=== PATIENT | male | born 1980 | race Caucasian/White ===

== ENCOUNTER 2022-06-02 05:45 | Emergency (ER) | payer OTHER, SELFPAY ==
[2022-06-02 05:50] VITALS: BP 151/102; PULSE 82; RESP 18; TEMP 36.4; O2SAT 93
[2022-06-02 06:00] VITALS: BP 151/100; PULSE 93; RESP 16; O2SAT 94
--- NOTE | 2022-06-02 06:05 | CTR_ITS ---
PROCEDURE INFORMATION: Exam: CT Abdomen And Pelvis With Contrast Exam date and time: 06/02/2022 6:16 AM Age: 42 years old Clinical indication: Abdominal pain; Flank; Right; Patient HX: Previous history of renal stone; Additional info: And pain TECHNIQUE: Imaging protocol: Computed tomography of the abdomen and pelvis with contrast. Radiation optimization: All CT scans at this facility use at least one of these dose optimization techniques: automated exposure control; mA and/or kV adjustment per patient size (includes targeted exams where dose is matched to clinical indication); or iterative reconstruction. Contrast material: OMNI 350; Contrast volume: 100 ml; Contrast route: INTRAVENOUS (IV); REPORTING DATA: Count of CT and Cardiac NM exams in prior 12 months: This patient has received 0 known CTs and 0 known cardiac nuclear medicine studies in the 12 months prior to the current study. COMPARISON: No relevant prior studies available. RADIATION DOSE METRICS: Total DLP (mGy-cm): 780.03 FINDINGS: Lungs: The lung bases are clear. Liver: There is a very small 5-6 mm low attenuation area in the right lobe of the liver. The appearance is nonspecific, but statistically this most likely represents a small cyst or cavernous hemangioma. Gallbladder and bile ducts: No definite gallbladder abnormality by CT. No biliary tree dilation. Pancreas: Unremarkable. Spleen: Unremarkable. Adrenal glands: Unremarkable. Kidneys and ureters: Two small right lower pole intrarenal calculi. Mild right hydronephrosis. There is a 3 x 5 mm proximal right ureteral calculus, about 4 cm inferior to the UPJ. The calculus lies at the upper aspect of L4. Possible subcentimeter cysts in both kidneys, too small to accurately characterize by CT. No left hydronephrosis or visible left ureteral calculus. Stomach and bowel: The stomach appears somewhat distended at the time of scanning. Please correlate clinically. No significant bowel distention. There are no CT findings to strongly suggest diverticulitis. Appendix: The appendix is visualized and appears normal. Intraperitoneal space: No free intraperitoneal air, or ascites. Vasculature: No evidence for abdominal aortic aneurysm. Lymph nodes: No retroperitoneal adenopathy. Urinary bladder: No visible calculus in the urinary bladder. Reproductive: Essentially unremarkable for age. Bones/joints: Mild to moderate bulging disc suspected at L4-L5. Soft tissues: No significant acute finding. CT/CT abdomen pelvis w con* [id number] IMPRESSION: 1. 3 x 5 mm proximal right ureteral calculus, see additional details above. 2. Mild right hydronephrosis. 3. Normal appendix. 4. Somewhat distended stomach. 5. No free air or significant bowel distention. 6. Other findings discussed above. COMMENTS: Consistent with the [employer]'s Incidental Findings Committee white paper (J Am Melo Radiol 2018): Any incidental renal lesion less than 1 cm or classified as too small to characterize, or any incidental cystic renal lesion characterized as simple-appearing, is likely benign. No follow-up imaging is recommended for these lesions per consensus recommendations based on imaging criteria.
[2022-06-02 06:11] LABS: Basophils % 0.5 %; Eosinophils # 0.1 10^3/uL (0.0-0.8); Eosinophils % 0.9 %; Hemoglobin 17.4 g/dL (11.7-16.6); Lymphocytes # 2.2 10^3/uL (0.8-4.8); Lymphocytes % 28.8 %; Mean Corpuscular HGB Conc 32.8 g/dL (30.0-36.0); Mean Corpuscular Hemoglobin 28.3 pg (28.0-34.0); Mean Corpuscular Volume 86.2 fl (80-94); Mean Platelet Volume 10.8 fL (7.4-10.4); Monocytes # 0.7 10^3/uL (0.2-0.9); Monocytes % 9.2 %; Neutrophils # 4.66 10^3/uL (1.8-7.7); Neutrophils % 60.3 %; Nucleated Red Blood Cells % 0 %; Platelet Count 234 10^3/cmm (130-400); Red Blood Count 6.15 10^6/uL (4.1-5.3); Red Cell Distribution Width 12.1 % (12.1-15.1); White Blood Count 7.7 10^3/uL (4.0-10.0)
[2022-06-02 06:26] LABS: Alanine Aminotransferase 26 U/L (0-41); Albumin Level 4.5 g/dL (3.5-5.2); Alkaline Phosphatase 59 U/L (40-130); Anion Gap 16.4 (5-19); Aspartate Amino Transferase 21 U/L (0-40); Blood Urea Nitrogen 20 mg/dL (6-20); Calcium 9.1 mg/dL (8.5-10.5); Carbon Dioxide 27 mmol/L (22-29); Chloride 102 mmol/L (98-107); Globulin 2.6 g/dL (1.3-4.6); Glomerular Filtration Rate 61.1 mL/min (90-130); Glucose 114 mg/dL (65-115); Lipase 22 U/L (13-60); Osmolality Calculated 295 mOsm/kg (285-295); Potassium 4.4 mmol/L (3.5-5.1); Sodium 141 mmol/L (136-145); Total Bilirubin 0.4 mg/dL (0.15-1.2); Total Protein 7.1 g/dL (6.6-8.7)
--- NOTE | 2022-06-02 06:28 | ED_ITS ---
HPI - Abdominal Pain General: Chief Complaint: Abdominal Pain Stated Complaint: R abdomen pain, R flank pain Time Seen by Provider: 06/02/22 06:04 Source: patient Mode of arrival: ambulatory Limitations: no limitations History of Present Illness: 42-year-old male states that he started having some abdominal pain mainly in his right lower quadrant and right flank at midnight he has had some nausea vomiting states pain is sharp in nature he denies any fevers rates his pain a 7 out of 10 currently denies any worsening improving factors. Associated Symptoms: Reports nausea and vomiting; Denies chills, dysuria and fever(s) Review of Systems Const: Denies: fever(s), chills, body aches or change in appetite Eyes: Denies: blurry vision or eye discomfort ENMT: Denies: throat pain or dental pain Card: Denies: chest pain Resp: Denies: dyspnea GI: Reports: abdominal pain, nausea and vomiting : Denies: dysuria Musc: Denies: neck pain or back pain Skin/Breast: Denies: rash Neuro: Denies: headache(s) Psych: Denies: depression Rohan/Lymph: Denies: easy bruising All/Imm: Denies: urticaria PFSH ED PFSH: Medical History (Updated 06/02/22 @ 07:12 by Chace Banuelos MD) No pertinent past medical history Social History (Updated 06/02/22 @ 06:29 by Chace Banuelos MD) Substance/Drug Use: never Physical Exam Const: COMMON NORMALS: no acute distress, patient oriented x3 and healthy appearing HENMT: COMMON NORMALS: normocephalic and atraumatic HEAD & SCALP: normocephalic and atraumatic Eye: COMMON NORMALS: Equal, round and reactive pupils present and EOMs intact bilaterally PUPIL: Yes Equal, round and reactive pupils present Neck/C-Spine: COMMON NORMALS: full ROM and supple Chest: COMMONS NORMALS: normal inspection of the chest and normal palpation of entire chest wall Resp: COMMON NORMALS: normal respiratory effort, No retractions, No use of accessory muscles and clear to auscultation bilaterally AUSCULTATION: clear to auscultation bilaterally Cardio: COMMON NORMALS: regular rate, regular rhythm and No murmurs present (Cardio) RATE: regular rate RHYTHM: regular rhythm GI: COMMON NORMALS: Normal to inspection, nondistended, normoactive bowel sounds present, Soft to palpation, non-tender and no masses PALPATION: Yes Soft to palpation Extremity: COMMON NORMALS: normal to inspection and full ROM Neuro: COMMON NORMALS: patient oriented x3, moves all extremities and no focal motor deficits Psych: COMMON NORMALS: mental status grossly normal, Normal thought process present and cooperative THOUGHT PROCESS: Normal thought process present Skin: COMMON NORMALS: no rashes or lesions noted and no wounds GENERAL SKIN EXAM: no rashes or lesions noted Course Vital Signs: Vital signs: Vital Signs Temperature 97.6 F 06/02/22 05:50 Pulse Rate 93 06/02/22 06:00 Respiratory Rate 16 06/02/22 06:30 Blood Pressure 151/100 06/02/22 06:00 Pulse Oximetry 95 06/02/22 06:30 Oxygen Delivery Me thod 06/02/22 06:00 MDM - Abdominal Pain Medical Decision Making Patient presents here with flank pain he does have a kidney stone his pains improved here he stable for discharge he is to follow-up with urologist in [place] where he lives he is return if worsening. Lab Data 06/02/22 05:53 06/02/22 05:53 Labs/Radiology: Radiology Impressions Abdomen/Pelvis CT 06/02/22 06:05 IMPRESSION: 1. 3 x 5 mm proximal right ureteral calculus, see additional details above. 2. Mild right hydronephrosis. 3. Normal appendix. 4. Somewhat distended stomach. 5. No free air or significant bowel distention. 6. Other findings discussed above. COMMENTS: Consistent with the [employer]'s Incidental Findings Committee white paper (J Am Melo Radiol 2018): Any incidental renal lesion less than 1 cm or classified as too small to characterize, or any incidental cystic renal lesion characterized as simple-appearing, is likely benign. No follow-up imaging is recommended for these lesions per consensus recommendations based on imaging criteria. Laboratory Results WBC 7.7 10^3/uL (4.0-10.0) 06/02/22 05:53 RBC 6.15 10^6/uL (4.1-5.3) H 06/02/22 05:53 Hgb 17.4 g/dL (11.7-16.6) H 06/02/22 05:53 Hct 53.0 % (42.0-52.0) H 06/02/22 05:53 MCV 86.2 fl (80-94) 06/02/22 05:53 MCH 28.3 pg (28.0-34.0) 06/02/22 05:53 MCHC 32.8 g/dL (30.0-36.0) 06/02/22 05:53 RDW 12.1 % (12.1-15.1) 06/02/22 05:53 Plt Count 234 10^3/cmm (130-400) 06/02/22 05:53 MPV 10.8 fL (7.4-10.4) H 06/02/22 05:53 Neut % (Auto) 60.3 % 06/02/22 05:53 Lymph % (Auto) 28.8 % 06/02/22 05:53 [place] % (Auto) 9.2 % 06/02/22 05:53 Eos % (Auto) 0.9 % 06/02/22 05:53 Baso % (Auto) 0.5 % 06/02/22 05:53 Neut # (Auto) 4.66 10^3/uL (1.8-7.7) 06/02/22 05:53 Lymph # (Auto) 2.2 10^3/uL (0.8-4.8) 06/02/22 05:53 [place] # (Auto) 0.7 10^3/uL (0.2-0.9) 06/02/22 05:53 Eos # (Auto) 0.1 10^3/uL (0.0-0.8) 06/02/22 05:53 Baso # (Auto) 0.0 10^3/uL (0.0-0.1) 06/02/22 05:53 Nucleated RBC % (auto) 0 % 06/02/22 05:53 Nucleated RBCs # 0.0 /100WBC 06/02/22 05:53 Sodium 141 mmol/L (136-145) 06/02/22 05:53 Potassium 4.4 mmol/L (3.5-5.1) 06/02/22 05:53 Chloride 102 mmol/L (98-107) 06/02/22 05:53 Carbon Dioxide 27 mmol/L (22-29) 06/02/22 05:53 Anion Gap 16.4 (5-19) 06/02/22 05:53 BUN 20 mg/dL (6-20) 06/02/22 05:53 Creatinine 1.3 mg/dL (0.7-1.2) H 06/02/22 05:53 GFR Calculation 61.1 mL/min (90-130) L 06/02/22 05:53 Glucose 114 mg/dL (65-115) 06/02/22 05:53 Calculated Osmolality 295 mOsm/kg (285-295) 06/02/22 05:53 Calcium 9.1 mg/dL (8.5-10.5) 06/02/22 05:53 Total Bilirubin 0.4 mg/dL (0.15-1.2) 06/02/22 05:53 AST 21 U/L (0-40) 06/02/22 05:53 ALT 26 U/L (0-41) 06/02/22 05:53 Alkaline Phosphatase 59 U/L (40-130) 06/02/22 05:53 C-Reactive Protein 3.0 mg/L (0.0-4.9) 06/02/22 05:53 Total Protein 7.1 g/dL (6.6-8.7) 06/02/22 05:53 Albumin 4.5 g/dL (3.5-5.2) 06/02/22 05:53 Globulin 2.6 g/dL (1.3-4.6) 06/02/22 05:53 Lipase 22 U/L (13-60) 06/02/22 05:53 Urine Color Yellow (Yellow) 06/02/22 06:45 Urine Appearance Hazy (CLEAR) A 06/02/22 06:45 Urine pH 7 (5-7) 06/02/22 06:45 Ur Specific [place] 1.005 (1.005-1.030) 06/02/22 06:45 Urine Protein Trace (Negative) 06/02/22 06:45 Urine Glucose (UA) Norm (Normal) 06/02/22 06:45 Urine Ketones Negative (Negative) 06/02/22 06:45 Urine Blood 3+ (Negative) H 06/02/22 06:45 Urine Nitrate Negative (Negative) 06/02/22 06:45 Urine Bilirubin Neg (Negative) 06/02/22 06:45 Urine Urobilinogen Norm mg/dL (Negative) 06/02/22 06:45 Ur Leukocyte Esterase Negative (Negative) 06/02/22 06:45 Urine RBC >100 /hpf (0-2) H 06/02/22 06:45 Urine WBC 0-4 /hpf (0-5) H 06/02/22 06:45 Ur Squamous Epith Cells 0-4 /hpf (0-5) H 06/02/22 06:45 Amorphous Sediment Not Reportable 06/02/22 06:45 Urine Bacteria 1+ /hpf (NONE) H 06/02/22 06:45 Discharge Plan Discharge Patient Disposition: Home Clinical Impression: Kidney stone Prescriptions: New hydrocodone-acetaminophen 5-325 mg tablet 1 tab PO Q6H PRN (Reason: pain) Qty: 14 0RF ondansetron 4 mg tablet,disintegrating 4 mg PO Q6H PRN (Reason: nausea and vomiting) Qty: 14 0RF Discharge Orders: Discharge ED (Routine); Ordered 06/02/22 Ordered By: Chace Banuelos Discharge Diet: Advance as tolerated Discharge Activity: Resume usual activity Patient Instructions: Kidney Stones (ED), Opioid Safety Coding Level of Care Code ED Broadcast Operations Technician for Marilou Ruiz
[2022-06-02 06:30] VITALS: RESP 16; O2SAT 95
[2022-06-02] MEDS: morphine 4 mg/mL SDV 1 mL IVP (06:30)
[2022-06-02] MEDS: ondansetron 2 mg/ML SDV 2 mL 4 MG IVP (06:30)
[2022-06-02] MEDS: sodium chloride 0.9% 1,000 ML 999 ML IV (06:39)
[2022-06-02 06:59] LABS: Blood Urine 3+ (Negative); Glucose Urine UA Norm (Normal); Ketones Urine Negative (Negative); Protein Urine Trace (Negative); Specific Gravity, Urine 1.005 (1.005-1.030); Urine Appearance Hazy (CLEAR); Urine Color Yellow (Yellow); pH Urine 7 (5-7)
[2022-06-02 07:00] LABS: Add Urine Culture? Yes; Add Urine Microscopic? YES; Bacteria Urine 1+ /hpf; Bilirubin Urine Neg (Negative); Leukocyte Esterase Urine Negative (Negative); Nitrate Urine Negative (Negative); RBC Urine >100 /hpf (0-2); Squamous Epithelial Cell Urine 0-4 /hpf (0-5); Urobilinogen Urine Norm (Negative); WBC Urine 0-4 /hpf (0-5)
[2022-06-02] MEDS: ketorolac 30 mg/mL INJ 15 MG IVP (07:21)
--- NOTE | 2022-06-03 17:38 | PC.NURSE ---
Flomax 0.4mg disperse 5 per Vin called into [facility] [phone] left message on pharmacy voicemail
--- NOTE | 2022-06-05 14:55 | DCPLANNER ---
feed manager called patient due to no primary care physician - patients stated that patient sees Dr. Dean Lowery
== END 2022-06-02 08:15 | disposition home or self-care (01) ==
PROVIDERS: Emergency Medicine; Emergency Provider Emergency Medicine
DX: N13.2 Hydronephrosis with renal and ureteral calculous obstruction (principal)
CPT/HCPCS: 74177; 80053; 81001; 83690; 85025; 86140; 87086; 96361; 96374; 96376; 99285; J1885; J2270; J2405; J7030; Q9967